=== PATIENT | female | born 1980 | race Caucasian/White ===

== ENCOUNTER 2017-03-24 05:08 | Emergency (ER) | payer OTHER ==
[~2017-03-24] VITALS: Ht 157.5 cm; Wt 53.5 kg
[~2017-03-24 05:08] MED LIST: DOCU10ELUD PO; IBUP80TA PO; LANOOIL2 TOP; MOM30SS PO; PRENTAB74 PO; TYLE325T5 PO
[2017-03-24 05:15] VITALS: BP 115/58
[2017-03-24 06:05] LABS: MEAN CORPUSCULAR HEMOGLOBIN 29.7 pg (27.0-33.0); MEAN CORPUSCULAR HGB CONC 33.7 g/dl (32.0-36.5); MEAN CORPUSCULAR VOLUME 88.2 fl (80.0-96.0); RED CELL DISTRIBUTION WIDTH 12.1 % (11.5-14.5); WHITE BLOOD COUNT 16.3 K/mm3 (4.0-10.0)
--- NOTE | 2017-03-24 07:10 | REPUSA ---
CLINICAL HISTORY: Intrauterine device. Trauma. TECHNIQUE: Realtime sonographic images were obtained in multiple projections via TV approach. COMMENTS: The uterus is retroverted measuring 9.9x5.1x7.7 cm. The endometrial echo pattern is within normal donaldson its measuring 7.3 mm. There is trace amount of free fluid within the pelvic cul-de-sac. The right ovary measures 6x4x6 cm with a cyst measuring 3.8 cm and the left ovary measures 3.6x1.8x2. 7 cm.. Both ovaries are free of solid mass. There is no evidence for abnormal vascularity. IMPRESSION: Normal retroverted uterus. Right ovarian cyst. Thank you for your kind referral of this patient.
== END 2017-03-24 06:40 | disposition home or self-care (01) ==
LOC: M ED 06:30
DX: T83.32XA Displacement of intrauterine contraceptive device, initial encounter (principal); Y92.9 Unspecified place or not applicable; Y93.9 Activity, unspecified; N85.4 Malposition of uterus; N83.291 Other ovarian cyst, right side; F32.9 Major depressive disorder, single episode, unspecified; F17.200 Nicotine dependence, unspecified, uncomplicated; Z87.442 Personal history of urinary calculi

== ENCOUNTER → 2017-04-04 | Outpatient (CLI) | payer OTHER | LOC: M LAB 15:55 | PROVIDERS: ATTEND Advanced Practice Midwife | DX: Z04.8 Encounter for examination and observation for other specified reasons (principal) ==

== ENCOUNTER → 2017-04-16 | Outpatient (CLI) | payer OTHER ==
[~2017-04-16] MED LIST changes: +LIDOCAINE 1% MDV 20ML VIAL As Ordered ONE
--- NOTE | 2017-04-16 14:31 | REP ---
Focused left breast sonography: History: Palpable lump. The patient referred for possible ultrasound guided aspiration and/or biopsy. Comparison sonography and mammography are from February 07, 2017 done at [facility]. Findings: Scanning of the left breast at 1 o'clock demonstrates an oval-shaped hypoechoic solid appearing lesion measuring 16 x 9 x 14 mm. This has a well defined back wall and has enhanced through transmission. 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 Ultrasound guided fine needle aspiration biopsy will be carried out. Impression: 16 mm oval shaped solid hypoechoic lesion with its long axis parallel to the skin most compatible with fibroadenoma. Ultrasound guided fine needle aspiration biopsy will be performed. Signed by Brien Palma MD 04/16/2017 03:55 P
--- NOTE | 2017-04-16 16:06 | REP ---
ULTRASOUND GUIDED LEFT BREAST BIOPSY: The procedure was performed under the direct supervision of Dr. Palma. The patient has a history of a 16 mm oval shaped solid hypoechoic lesion in the 1 o'clock position of the left breast seen on a previous ultrasound performed earlier today. The risks and benefits of the procedure were explained to the patient and informed consent was obtained. The left breast nodule was localized using ultrasound guidance. The skin was prepped and draped in a sterile fashion, 1% Xylocaine was used as a local anesthetic. Using ultrasound guidance an 18 gauge needle was inserted and advanced into the nodule however no fluid could be withdrawn. 6 fine-needle aspirations were obtained using 25 gauge needles. The patient tolerated the procedure well and there were no immediate complications. After the appropriate amount of monitored convalescence the patient was discharged from the department. Reviewed by DADA Watkins 04/17/2017 04:41 PEdited and Signed by Brien Palma MD 04/17/2017 04:57 P
== END ==
LOC: M RADPRO 12:09
PROVIDERS: ATTEND Surgery
DX: D24.2 Benign neoplasm of left breast (principal); Z72.0 Tobacco use; Z79.899 Other long term (current) drug therapy

== ENCOUNTER → 2017-06-09 | Outpatient (REF) | payer OTHER ==
[~2017-06-09] MED LIST changes: -LIDOCAINE 1% MDV 20ML VIAL As Ordered ONE
== END ==
LOC: M LAB REF 16:30
PROVIDERS: ATTEND Surgery
DX: N63 Unspecified lump in breast (principal)

== ENCOUNTER 2018-07-15 05:59 | Day surgery (SDC) | payer OTHER ==
[~2018-07-15 05:59] MED LIST changes: -DOCU10ELUD PO; -IBUP80TA PO; -LANOOIL2 TOP; +LR 1,000 ML IV; -MOM30SS PO; -PRENTAB74 PO; -TYLE325T5 PO
[2018-07-15 06:28] LABS: HEMATOCRIT 43.5 % (36.0-47.0); HEMOGLOBIN 14.4 g/dl (12.0-15.5)
[2018-07-15 06:42] LABS: CONTROL LINE HCG INT CTR LINE PRESENT; HCG, SERUM QUALITATIVE NEGATIVE (NEGATIVE)
[2018-07-15] MEDS: SCOPOLAMINE 1MG TRANSDERMAL PATCH TOP ×2 (07:17)
[2018-07-15] MEDS: LR 1,000 ML IV ×2 (07:18)
[2018-07-15] MEDS ORDERED: PROPOFOL 200 MG/20 ML VIAL As Ordered ×2 (08:03)
[2018-07-15] MEDS ORDERED: HYDROmorphone HCL 2 MG/ML 1ML VIAL (J1170) As Ordered ×2 (08:03)
[2018-07-15] MEDS ORDERED: LIDOCAINE 2% INJ 100 MG/5 ML SDV (FOR ANES.) As Ordered ×2 (08:03)
[2018-07-15] MEDS ORDERED: ROCURONIUM BROMIDE 50 MG/5 ML VIAL As Ordered ×4 (08:03→08:22)
[2018-07-15] MEDS ORDERED: fentaNYL 100 MCG/2 ML INJECTION (J3010) As Ordered ×2 (08:03)
[2018-07-15] MEDS ORDERED: MIDAZOLAM INJ 2 MG/2 ML VIAL (J2250) As Ordered ×2 (08:03)
[2018-07-15] MEDS ORDERED: ONDANSETRON 4MG/2ML VIAL (J2405) As Ordered ×4 (08:03→08:05)
[2018-07-15] MEDS ORDERED: dexameTHASONE 4 MG/ML 1ML VIAL (J1100) As Ordered ×2 (08:03)
[2018-07-15] MEDS ORDERED: PHENYLephrine HCL 500 MCG/5 ML (100MCG/ML) SYRINGE (J2370) As Ordered ×2 (08:06)
[2018-07-15] MEDS ORDERED: ePHEDrine SULFATE 25 MG/5 ML(5MG/ML) SYRINGE As Ordered ×2 (08:06)
[2018-07-15] MEDS ORDERED: SUGAMMADEX SODIUM 500 MG/5 ML VIAL (BRIDION) As Ordered ×2 (08:39)
[2018-07-15] MEDS: BUPIVACAINE HCL 0.25% 30 ML VIAL As Ordered ×2 (09:09)
[2018-07-15] MEDS ORDERED: GLYCOPYRROLATE INJ 0.2 MG/ML 2 ML VIAL As Ordered ×2 (10:07)
[2018-07-15] MEDS ORDERED: fentaNYL 100 MCG/2 ML INJECTION (J3010) IV ×2 (10:15)
[2018-07-15] MEDS ORDERED: LR 1,000 ML IV ×2 (10:15)
[2018-07-15] MEDS ORDERED: ONDANSETRON 4MG/2ML VIAL (J2405) IV ×2 (10:15)
[2018-07-15] MEDS: PERCOCET 5MG/325MG TAB PO ×2 (10:17)
[2018-07-15] MEDS ORDERED: PERCOCET 5MG/325MG TAB As Ordered ×2 (12:21)
== END 2018-07-15 12:40 | disposition home or self-care (01) ==
LOC: M OR 05:59 → M RR INP 10:45 → M OR 10:45 → M SDC 07:25
DX: N92.6 Irregular menstruation, unspecified (principal); N94.10 Unspecified dyspareunia; N94.6 Dysmenorrhea, unspecified; N80.9 Endometriosis, unspecified
CPT/HCPCS: 58661

== ENCOUNTER 2018-09-30 05:50 | Day surgery (SDC) | payer OTHER ==
[2018-09-30 06:26] LABS: HEMATOCRIT 43.9 % (36.0-47.0); HEMOGLOBIN 14.3 g/dl (12.0-15.5); MEAN CORPUSCULAR HEMOGLOBIN 29.1 pg (27.0-33.0); MEAN CORPUSCULAR HGB CONC 32.6 g/dl (32.0-36.5); MEAN CORPUSCULAR VOLUME 89.4 fl (80.0-96.0); PLATELET COUNT, AUTOMATED 378 10^3/uL (150-450); RED BLOOD COUNT 4.91 10^6/uL (4.00-5.40); RED CELL DISTRIBUTION WIDTH 12.5 % (11.5-14.5); WHITE BLOOD COUNT 10.8 10^3/uL (4.0-10.0)
[2018-09-30] MEDS: LR 1,000 ML IV ×3 (06:50→23:22)
[2018-09-30 06:52] LABS: ANION GAP 6 MEQ/L (8-16); BLOOD UREA NITROGEN 10 MG/DL (7-18); CALCIUM LEVEL 8.7 MG/DL (8.5-10.1); CARBON DIOXIDE LEVEL 27 MEQ/L (21-32); CHLORIDE LEVEL 107 MEQ/L (98-107); CREATININE FOR GFR 0.69 MG/DL (0.55-1.30); GLOMERULAR FILTRATION RATE > 60.0 (>60); GLUCOSE, FASTING 86 MG/DL (70-100); POTASSIUM SERUM 4.4 MEQ/L (3.5-5.1); SODIUM LEVEL 140 MEQ/L (136-145)
[2018-09-30 07:06] LABS: CONTROL LINE UCG INT CTR LINE PRESENT; URINE PREG TEST NEGATIVE (NEGATIVE)
[2018-09-30] MEDS: BUPIVACAINE HCL 0.25% 30 ML VIAL As Ordered (07:09)
[2018-09-30] MEDS: ACETAMINOPHEN 650 MG SUPP As Ordered (07:09)
[2018-09-30] MEDS ORDERED: BUPIVACAINE/EPIN 0.25% 30 ML VIAL As Ordered (07:10)
[2018-09-30] MEDS ORDERED: fentaNYL 250 MCG/5 ML INJECTION (J3010) As Ordered (07:15)
[2018-09-30] MEDS ORDERED: MIDAZOLAM INJ 2 MG/2 ML VIAL (J2250) As Ordered (07:15)
[2018-09-30] MEDS ORDERED: LIDOCAINE 2% INJ 100 MG/5 ML SDV (FOR ANES.) As Ordered (07:16)
[2018-09-30] MEDS ORDERED: dexameTHASONE 4 MG/ML 1ML VIAL (J1100) As Ordered (07:16)
[2018-09-30] MEDS ORDERED: ROCURONIUM BROMIDE 50 MG/5 ML VIAL As Ordered ×2 (07:16→08:41)
[2018-09-30] MEDS ORDERED: PROPOFOL 200 MG/20 ML VIAL As Ordered (07:16)
[2018-09-30] MEDS ORDERED: ONDANSETRON 4MG/2ML VIAL (J2405) As Ordered (07:16)
[2018-09-30] MEDS: ACETAMINOPHEN 650 MG SUPP PR (07:58)
[2018-09-30] MEDS ORDERED: KETOROLAC 60 MG/2 ML VIAL (J1885) As Ordered (09:07)
[2018-09-30] MEDS ORDERED: NEOSTIGMINE 10 MG/10 ML VIAL (J2710) As Ordered (09:12)
[2018-09-30] MEDS ORDERED: GLYCOPYRROLATE INJ 0.2 MG/ML 2 ML VIAL As Ordered (09:12)
[2018-09-30] MEDS: FLUORESCEIN 10% (100MG/ML) 5 ML VIAL As Ordered (09:20)
[2018-09-30] MEDS ORDERED: ePHEDrine SULFATE 25 MG/5 ML(5MG/ML) SYRINGE As Ordered (09:51)
[2018-09-30] MEDS ORDERED: fentaNYL 100 MCG/2 ML INJECTION (J3010) As Ordered (10:16)
[2018-09-30] MEDS: fentaNYL 100 MCG/2 ML INJECTION (J3010) IV ×4 (10:18→10:33)
[2018-09-30] MEDS ORDERED: PERCOCET 5MG/325MG TAB PO (10:45)
[2018-09-30] MEDS: NORCO, ANEXSIA 5/325MG TABLET (HYDROcodone/ACETAMINOPHEN) PO ×2 (11:35→13:06)
[2018-09-30] MEDS: ONDANSETRON 4MG/2ML VIAL (J2405) IV (11:37)
[2018-09-30] MEDS ORDERED: NORCO, ANEXSIA 5/325MG TABLET (HYDROcodone/ACETAMINOPHEN) As Ordered (13:05)
[2018-09-30] MEDS: SIMETHICONE 80 MG CHEW TAB PO ×2 (14:30→19:09)
[2018-09-30] MEDS: IBUPROFEN 800 MG TAB PO (19:08)
[2018-10-01] MEDS: SIMETHICONE 80 MG CHEW TAB PO ×2 (03:36→05:49)
[2018-10-01] MEDS: IBUPROFEN 800 MG TAB PO (10:48)
== END 2018-10-01 12:00 | disposition home or self-care (01) ==
LOC: M SDC 05:50 → M MSPAV 13:59
DX: N80.3 Endometriosis of pelvic peritoneum (principal); N80.1 Endometriosis of ovary; N73.6 Female pelvic peritoneal adhesions (postinfective); K21.9 Gastro-esophageal reflux disease without esophagitis; F41.9 Anxiety disorder, unspecified; F32.9 Major depressive disorder, single episode, unspecified; Z98.51 Tubal ligation status; Z72.0 Tobacco use
CPT/HCPCS: 58571

== ENCOUNTER → 2019-02-10 | Outpatient (REF) ==
[~2019-02-10] MED LIST changes: +DOCU10ELUD PO; +IBUP80TA PO; +LANOOIL2 TOP; -LR 1,000 ML IV; +MIRE1IUD; +MOM30SS PO; +PRENTAB74 PO; +TYLE325T5 PO
[2019-02-10 14:46] LABS: RUBELLA IgG QUALITATIVE IMMUNE (IMMUNE)
== END ==
LOC: M LAB 13:32
PROVIDERS: ATTEND Nurse Practitioner Adult Health
DX: Z00.00 Encounter for general adult medical examination without abnormal findings (principal)

== ENCOUNTER 2020-09-09 15:51 | Emergency (ER) | payer BC, OTHER ==
[~2020-09-09] VITALS: Ht 157.5 cm; Wt 56.6 kg
[~2020-09-09 15:51] MED LIST changes: -DOCU10ELUD PO; +DOCU5LIQ PO
[2020-09-09] MEDS ORDERED: KETOROLAC 30 MG/ML 1ML VIAL IV ONE (16:30)
[2020-09-09 16:33] LABS: BASO % 0.3 % (0.0-1.0); EOS # 0.2 10^3/uL (0.0-0.5); EOS % 1.3 % (0.0-3.0); HEMATOCRIT 44.4 % (36.0-47.0); HEMOGLOBIN 14.5 g/dl (12.0-15.5); LYMPH # 2.3 10^3/uL (1.5-5.0); LYMPH % 19.4 % (24.0-44.0); MEAN CORPUSCULAR HEMOGLOBIN 29.1 pg (27.0-33.0); MEAN CORPUSCULAR HGB CONC 32.7 g/dl (32.0-36.5); MONO # 0.6 10^3/uL (0.0-0.8); NEUTROPHILS # 8.6 10^3/uL (1.5-8.5); NEUTROPHILS % 73.6 % (36.0-66.0); PLATELET COUNT, AUTOMATED 363 10^3/uL (150-450); RED BLOOD COUNT 4.99 10^6/uL (4.00-5.40); WHITE BLOOD COUNT 11.7 10^3/uL (4.0-10.0)
--- NOTE | 2020-09-09 16:34 | ECGEPIP ---
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
[2020-09-09 16:59] LABS: ALBUMIN 3.7 GM/DL (3.2-5.2); ALT/SGPT 23 U/L (12-78); BILIRUBIN,DIRECT < 0.1 MG/DL (0.0-0.2); BILIRUBIN,TOTAL 0.3 MG/DL (0.2-1.0); BLOOD UREA NITROGEN 8 MG/DL (7-18); CALCIUM LEVEL 8.8 MG/DL (8.5-10.1); CARBON DIOXIDE LEVEL 25 MEQ/L (21-32); CHLORIDE LEVEL 108 MEQ/L (98-107); CREATININE FOR GFR 0.57 MG/DL (0.55-1.30); FREE T4 1.08 NG/DL (0.76-1.46); GLOMERULAR FILTRATION RATE > 60.0 (>60); GLUCOSE, FASTING 85 MG/DL (70-100); LIPASE 55 U/L (73-393); POTASSIUM SERUM 5.5 MEQ/L (3.5-5.1); SODIUM LEVEL 137 MEQ/L (136-145); TOTAL PROTEIN 7.1 GM/DL (6.4-8.2)
[2020-09-09 17:05] LABS: HCG, SERUM QUALITATIVE NEGATIVE (NEGATIVE)
[2020-09-09 17:15] LABS: INR 1.04; PARTIAL THROMBOPLASTIN TIME 30.3 SECONDS (24.2-38.5); PROTHROMBIN TIME 13.8 SECONDS (12.5-14.3)
[2020-09-09 17:18] LABS: D-DIMER QUANT 320.77 ng/ml (<500)
[2020-09-09] MEDS ORDERED: PERCOCET 5MG/325MG TAB PO ONE (17:45)
--- NOTE | 2020-09-09 17:53 | REPVR ---
PROCEDURE INFORMATION: Exam: XR Chest, 1 View Exam date and time: 09/09/2020 5:15 PM Age: 40 years old Clinical indication: Chest pain TECHNIQUE: Imaging protocol: XR of the chest Views: 1 view. COMPARISON: CR Abdomen,Flat Upright,PA CHEST 03/08/2016 1:28 PM FINDINGS: Lungs: No consolidation. Pleural space: There is no evidence of pneumothorax and no evidence of pleural effusion. Heart/Mediastinum: The heart is normal in size. Bones/joints: There is no evidence of bony abnormality. Soft tissues: There is a 1 cm density at the left lung base probably representing nipple shadow. I would recommend repeating the film with nipple markers for clarification. IMPRESSION: 1 cm density at the left lung base is probably nipple shadow and recommend repeating the film with nipple markers for verification. Electronically signed by: Bryce Marc On 09/09/2020 17:53:29 PM
--- NOTE | 2020-09-09 18:19 | REPVR ---
PROCEDURE INFORMATION: Exam: XR Chest, 1 View Exam date and time: 09/09/2020 6:05 PM Age: 40 years old Clinical indication: Chest pain; Additional info: With nipple markers TECHNIQUE: Imaging protocol: XR of the chest Views: 1 view. COMPARISON: CR PORTABLE CHEST X-RAY 09/09/2020 5:09 PM FINDINGS: Lungs: The lungs appear clear. Pleural space: There is no evidence of pneumothorax and no evidence of pleural effusion. Heart/Mediastinum: Heart is normal in size. Bones/joints: Unremarkable. Soft tissues: The round densities at the lung bases correspond to nipple shadow. IMPRESSION: Clear appearing lungs. Electronically signed by: Bryce Marc On 09/09/2020 18:18:59 PM
[2020-09-09 19:00] VITALS: BP 108/64
--- NOTE | 2020-09-10 07:12 | ECGEPIP ---
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 Order Number: [id number] Reading MD: Kayce Lopes Measurements Intervals [place] Rate: 63 P: 15 HI: 144 QRS: 9 QRSD: 76 T: 26 QT: 394 QTc: 404 Interpretive Statements SINUS RHYTHM DECREASED RATE 09/09/20 16:18 Electronically Signed on 09-10-2020 7:11:37 EDT by Kayce Lopes
== END 2020-09-09 19:18 | disposition home or self-care (01) ==
LOC: M ED 15:51
DX: R07.89 Other chest pain (principal); S29.019A Strain of muscle and tendon of unspecified wall of thorax, initial encounter; X58.XXXA Exposure to other specified factors, initial encounter; Y92.9 Unspecified place or not applicable; Y93.9 Activity, unspecified
CPT/HCPCS: 71045; 80047; 80048; 80076; 83690; 84132; 84439; 84443; 84484; 84703; 85025; 85379; 85610; 85730; 93005; 93041; 94760; 96374; 99285; J1885

== ENCOUNTER → 2021-12-17 | Outpatient (REF) | LOC: M LABSMTC 13:27 | PROVIDERS: ATTEND Pediatrics | DX: Z20.822 Contact with and (suspected) exposure to COVID-19 (principal) ==

== ENCOUNTER 2022-08-15 09:05 | Emergency (ER) | payer BC, OTHER ==
[~2022-08-15] VITALS: Ht 157.5 cm; Wt 70.6 kg
[2022-08-15 09:54] LABS: BASO % 0.3 % (0.0-1.0); EOS # 0.1 10^3/uL (0.0-0.5); EOS % 0.8 % (0.0-3.0); HEMATOCRIT 48.6 % (36.0-47.0); HEMOGLOBIN 15.9 g/dl (12.0-15.5); LYMPH # 2.2 10^3/uL (1.5-5.0); LYMPH % 20.1 % (24.0-44.0); MEAN CORPUSCULAR HEMOGLOBIN 29.3 pg (27.0-33.0); MEAN CORPUSCULAR HGB CONC 32.7 g/dl (32.0-36.5); MEAN CORPUSCULAR VOLUME 89.5 fl (80.0-96.0); MONO # 0.4 10^3/uL (0.0-0.8); NEUTROPHILS # 8.1 10^3/uL (1.5-8.5); NEUTROPHILS % 74.5 % (36.0-66.0); PLATELET COUNT, AUTOMATED 352 10^3/uL (150-450); RED BLOOD COUNT 5.43 10^6/uL (4.00-5.40); WHITE BLOOD COUNT 10.9 10^3/uL (4.0-10.0)
[2022-08-15 10:36] LABS: ALBUMIN 4.1 GM/DL (3.2-5.2); ALT/SGPT 12 U/L (12-78); BILIRUBIN,TOTAL 0.5 MG/DL (0.2-1.0); BLOOD UREA NITROGEN 8 MG/DL (7-18); CALCIUM LEVEL 9.4 MG/DL (8.5-10.1); CARBON DIOXIDE LEVEL 24 MEQ/L (21-32); CHLORIDE LEVEL 106 MEQ/L (98-107); CREATININE FOR GFR 0.66 MG/DL (0.55-1.30); GLOMERULAR FILTRATION RATE > 60.0 (>58); GLUCOSE, FASTING 91 MG/DL (70-100); POTASSIUM SERUM 4.7 MEQ/L (3.5-5.1); SODIUM LEVEL 134 MEQ/L (136-145); TOTAL PROTEIN 7.6 GM/DL (6.4-8.2)
[2022-08-15 11:46] LABS: HEPATITIS B SURFACE ANTIBODY NEGATIVE (POSITIVE)
[2022-08-15 11:49] LABS: HEPATITIS B SURFACE ANTIGEN NEGATIVE (NEGATIVE)
[2022-08-15 12:15] LABS: HEPATITIS C VIRUS ABY INDEX < 0.0 INDEX (<0.8)
[2022-08-15] MEDS ORDERED: HEPATITIS B VACCINE 20MCG/ML 1ML SYRINGE (ADULT DOSE) IM.IMMUN ONE (12:35)
[2022-08-15] MEDS ORDERED: BOOSTRIX/ADACEL VACCINE (DIPHTH/PERTUSS/ACELL/TETANUS) 0.5ML SYR IM ONE (12:45)
[2022-08-15 13:03] VITALS: BP 112/75
== END 2022-08-15 13:11 | disposition home or self-care (01) ==
LOC: M ED 09:05
DX: Z77.21 Contact with and (suspected) exposure to potentially hazardous body fluids (principal); F17.200 Nicotine dependence, unspecified, uncomplicated; Y92.9 Unspecified place or not applicable; Y93.9 Activity, unspecified; Y99.0 Civilian activity done for income or pay

== ENCOUNTER → 2022-08-20 | Outpatient (REF) | LOC: M EMP 09:43 | PROVIDERS: ATTEND Family Medicine | DX: Z20.822 Contact with and (suspected) exposure to COVID-19 (principal); Z11.52 Encounter for screening for COVID-19 ==

== ENCOUNTER → 2022-08-29 | Outpatient (REF) | LOC: M LABSMTC 09:46 | PROVIDERS: ATTEND Family Medicine | DX: Z20.822 Contact with and (suspected) exposure to COVID-19 (principal) ==

== ENCOUNTER → 2023-01-17 | Outpatient (REF) | payer BC ==
[2023-01-17 21:05] LABS: APPEARANCE, URINE HAZY (CLEAR); BILIRUBIN, URINE AUTO NEGATIVE (NEGATIVE); BLOOD, URINE BLOOD 2+ (NEGATIVE); COLOR, URINE YELLOW (YELLOW); GLUCOSE, URINE (UA) AUTO NEGATIVE (NEGATIVE); KETONE, URINE AUTO NEGATIVE (NEGATIVE); LEUKOCYTE ESTERASE, URINE AUTO 3+ (NEGATIVE); NITRITE, URINE AUTO NEGATIVE (NEGATIVE); PROTEIN, URINE AUTO NEGATIVE (NEGATIVE); SPECIFIC GRAVITY URINE AUTO 1.003 (1.002-1.035); UROBILINOGEN, URINE AUTO 0.2 mg/dL (0.0-2.0)
[2023-01-17 21:08] LABS: BACTERIA, URINE AUTO 3+ (NEGATIVE); RBC, URINE AUTO 3 /HPF (0-3); SQUAMOUS EPITHELIAL CELL UR AU 1 /HPF (0-6); WBC, URINE AUTO 33 /HPF (0-3)
== END ==
LOC: M LAB REF 20:45
PROVIDERS: ATTEND Physician Assistant
DX: N39.0 Urinary tract infection, site not specified (principal)

== ENCOUNTER 2023-02-12 08:38 | Emergency (ER) | payer BC ==
[~2023-02-12] VITALS: Ht 157.5 cm; Wt 70.5 kg
[2023-02-12 10:16] LABS: BASO % 0.2 % (0.0-1.0); EOS # 0.1 10^3/uL (0.0-0.5); EOS % 0.4 % (0.0-3.0); HEMATOCRIT 46.6 % (36.0-47.0); HEMOGLOBIN 15.1 g/dl (12.0-15.5); LYMPH # 1.5 10^3/uL (1.5-5.0); LYMPH % 11.2 % (24.0-44.0); MEAN CORPUSCULAR HEMOGLOBIN 28.8 pg (27.0-33.0); MEAN CORPUSCULAR HGB CONC 32.4 g/dl (32.0-36.5); MEAN CORPUSCULAR VOLUME 88.9 fl (80.0-96.0); MONO # 0.5 10^3/uL (0.0-0.8); MONO % 3.9 % (2.0-8.0); NEUTROPHILS # 11.3 10^3/uL (1.5-8.5); NEUTROPHILS % 83.9 % (36.0-66.0); PLATELET COUNT, AUTOMATED 387 10^3/uL (150-450); RED BLOOD COUNT 5.24 10^6/uL (4.00-5.40); WHITE BLOOD COUNT 13.4 10^3/uL (4.0-10.0)
[2023-02-12] MEDS ORDERED: KETOROLAC 30 MG/ML 1ML VIAL IV ONE (10:30)
[2023-02-12 10:31] LABS: LIPASE 23 U/L (12-53)
[2023-02-12 10:33] LABS: ALBUMIN 3.9 G/DL (3.2-5.2); ALKALINE PHOSPHATASE 85 U/L (46-116); ALT/SGPT < 9 U/L (7.0-40); AST/SGOT 14 U/L (<34); BILIRUBIN,DIRECT 0.1 MG/DL (<0.4); BILIRUBIN,TOTAL 0.4 MG/DL (0.3-1.2); BLOOD UREA NITROGEN 10 MG/DL (9-23); CALCIUM LEVEL 9.1 MG/DL (8.5-10.1); CARBON DIOXIDE LEVEL 26 MMOL/L (20-31); CHLORIDE LEVEL 107 MMOL/L (98-107); CREATININE FOR GFR 0.62 MG/DL (0.55-1.30); GLOMERULAR FILTRATION RATE > 60.0 (>58); GLUCOSE, FASTING 89 MG/DL (60-100); POTASSIUM SERUM 4.4 MMOL/L (3.5-5.1); SODIUM LEVEL 138 MMOL/L (136-145); TOTAL PROTEIN 6.8 G/DL (5.7-8.2)
[2023-02-12 10:34] LABS: HCG, SERUM QUALITATIVE NEGATIVE (NEGATIVE)
[2023-02-12] MEDS ORDERED: KETOROLAC 60MG 2ML VIAL IM ONE (11:05)
[2023-02-12] MEDS ORDERED: KETO10TAB PO (12:23)
[2023-02-12 12:29] VITALS: BP 159/85
== END 2023-02-12 12:38 | disposition home or self-care (01) ==
LOC: M ED 08:38
DX: N83.291 Other ovarian cyst, right side (principal); Z87.442 Personal history of urinary calculi; Z79.1 Long term (current) use of non-steroidal anti-inflammatories (NSAID)
CPT/HCPCS: 36415; 76830; 76856; 80048; 80076; 81001; 83690; 84703; 85025; 93976; 96372; 99284; J1885

== ENCOUNTER → 2023-02-19 | Outpatient (REF) | payer BC ==
[~2023-02-19] MED LIST changes: +KETO10TAB PO
== END ==
LOC: M LAB REF 21:47
PROVIDERS: ATTEND Physician Assistant
DX: J02.9 Acute pharyngitis, unspecified (principal)

== ENCOUNTER → 2023-02-26 | Outpatient (CLI) | payer BC | LOC: M WHC 15:40 | PROVIDERS: ATTEND Advanced Practice Midwife | DX: Z12.31 Encounter for screening mammogram for malignant neoplasm of breast (principal) ==

== ENCOUNTER → 2023-05-02 | Outpatient (REF) | LOC: M EMP 10:23 | PROVIDERS: ATTEND Family Medicine | DX: Z11.52 Encounter for screening for COVID-19 (principal) ==

== ENCOUNTER → 2024-03-04 | Outpatient (CLI) | payer BC | LOC: M WHC 15:01 | PROVIDERS: ATTEND Obstetrics & Gynecology | DX: Z12.31 Encounter for screening mammogram for malignant neoplasm of breast (principal); R92.333 Mammographic heterogeneous density, bilateral breasts; R92.8 Other abnormal and inconclusive findings on diagnostic imaging of breast ==

== ENCOUNTER → 2024-03-30 | Outpatient (CLI) | payer BC | LOC: M WHC 13:46 | PROVIDERS: ATTEND Obstetrics & Gynecology | DX: Z12.31 Encounter for screening mammogram for malignant neoplasm of breast (principal); N63.21 Unspecified lump in the left breast, upper outer quadrant | CPT/HCPCS: 76642; 77065; G0279 ==

== ENCOUNTER → 2024-07-09 | Outpatient (REF) | LOC: M EMP 13:37 | PROVIDERS: ATTEND Family Medicine | DX: Z20.822 Contact with and (suspected) exposure to COVID-19 (principal) ==

== ENCOUNTER → 2024-10-12 | Outpatient (CLI) | payer BC | LOC: M WHC 14:42 | PROVIDERS: ATTEND Obstetrics & Gynecology | DX: N63.20 Unspecified lump in the left breast, unspecified quadrant (principal) ==

== ENCOUNTER → 2025-04-12 | Outpatient (CLI) | payer BC | LOC: M WHC 14:13 | PROVIDERS: ATTEND Advanced Practice Midwife | DX: Z12.31 Encounter for screening mammogram for malignant neoplasm of breast (principal); R92.333 Mammographic heterogeneous density, bilateral breasts | CPT/HCPCS: 77066; G0279 ==

== ENCOUNTER → 2025-08-26 | Outpatient (REF) ==
[2025-08-26 13:49] LABS: SOFIA COVID ANTIGEN NEGATIVE (NEGATIVE)
== END ==
LOC: M EMP 13:13
PROVIDERS: ATTEND Family Medicine
DX: Z11.52 Encounter for screening for COVID-19 (principal)

== ENCOUNTER → 2025-11-16 | Outpatient (REF) | payer BC | LOC: M LAB REF 11:46 | PROVIDERS: ATTEND Physician Assistant | DX: B34.9 Viral infection, unspecified (principal) ==